=== PATIENT | female | born 1975 | race Caucasian/White ===

== ENCOUNTER 2019-01-20 14:32 | Outpatient (CLI) | END 2019-01-20 14:51 | disposition short-term general hospital (02) | LOC: AMBL 14:32 | PROVIDERS: ATTEND Internal Medicine | DX: M25.521 Pain in right elbow (principal); M79.89 Other specified soft tissue disorders; R25.2 Cramp and spasm; G82.20 Paraplegia, unspecified; V29.9XXS Motorcycle rider (driver) (passenger) injured in unspecified traffic accident, sequela ==